=== PATIENT | female | born 1945 | race Caucasian/White ===

== ENCOUNTER 2018-07-26 10:55 | Observation (INO) | payer MEDICARE, OTHER ==
[~2018-07-26] VITALS: Ht 149.9 cm; Wt 68.2 kg
--- NOTE | ~2018-07-26 | MORECARE ---
CASE MANAGEMENT DISCHARGE SUMMARY PATIENT: SALIMA LAMBERT UNIT: [id number] ADM DATE: 07/26/18 AGE: 73 : 43 SEX: F ROOM/BED: D.9939 AUTHOR: GRANT PURI PHYSICIAN: REFERRING PHYSICIAN: PAKO KHAN MD DATE OF SERVICE: 07/28/18 Discharge Plan Patient Name: SALIMA LAMBERT Facility: [facility]:[place] : 1945 Planned Disposition: Home Anticipated Discharge Date: 07/27/18 Discharge Date: 07/27/2018 Expected LOS: 1 Initial Reviewer: [email or web address] Initial Review Date: 07/28/2018 Generated: 07/28/18 9:58 am Patient Name: SALIMA LAMBERT Page [id number] at 0858 All edits/amendments must be made on the electronic document DICTATION DATE: 07/28/18 0858 FRONT OFFICE MEDICAL ASSISTANT: JOYCE 07/28/18 0858 RPT#: [id number] DC DATE:07/27/18 STATUS: DIS IN [facility] [address] [place] [address] END OF REPORT
--- NOTE | ~2018-07-26 | HEMODYNAMI ---
PATIENT:SALIMA LAMBERT MEDICAL RECORD: [id number] : 41 [id number] ADMISSION DATE: 07/26/18 Generatedon:07/27/20187:48 Patient name: SALIMA LAMBERT Patient #: [id number] SSN: : 1945 Date of study: 07/27/2018 Page: Of Hemodynamic Procedure Report Patient Data Patient Demographics Procedure consent was obtained First Name: SALIMA Gender: Female Last Name: FAUSTO : 1945 Middle Initial: S Age: 73 year(s) Patient #: [id number] Race: Unknown Additional ID: [id number] Contact details [address]: [address] [place] [address] State: [place] City: [place] Zip code: [address] Past Medical History Allergies: No known allergies Admission Admission Data Admission Date: 07/26/2018 Admission Time: 13:25 Admit Source: Emergency department Room #: D.2119 Lab Results Lab Result Date: 07/27/2018 Lab Result Time: 0:00 Biochemistry Name Units Result Min Max BUN mg/dl 7 --(*---)-- 7 18 Creatinine mg/dl 0.8 --(-*--)-- 0.6 1.3 CBC Name Units Result Min Max Hemoglobin g/dl 10.4 *-(----)-- 13.5 17.5 Procedure Procedure Types Cath Procedure Diagnostic Procedure LHC LHC w/Coronaries Procedure Description Procedure Date Procedure Date: 07/27/2018 Procedure Start Time: 7:32 Procedure End Time: 7:45 Procedure Staff Name Function Galen Elizondo MD Performing Physician Adair Evans RT Scrub Kang Maravilla RT Monitor Maria Luz Maldonado RN Nurse Procedure Data Cath Procedure Fluoroscopy Diagnostic fluoroscopy Total fluoroscopy Time: 1.4 time: 1.4 min min Diagnostic fluoroscopy Total fluoroscopy dose: 372 dose: 372 mGy mGy Contrast Material Contrast Material Type Amount (ml) Isovue 300 68 Entry Location Entry Primary Successful Side Size Upsize Upsize Entry Closure Succes sful Closure Location (Fr) 1 (Fr) 2 (Fr) Remarks Device Remarks Femoral Right 5 Fr Exoseal artery Estimated blood loss: 10 ml Diagnostic catheters Device Type Used For End Catheter Placement MULTIPACK JL 4.0 5Fr Procedure catheter MULTIPACK 3DRC 5Fr Procedure catheter MULTIPACK Pigtail 5 Fr Procedure catheter Procedure Complications No complications Procedure Medications Medication Administration Route Dosage Oxygen etCO2 Nasal cannula 2 l/min Lidocaine 2% added to field 20 Heparin Flush Bag added to field 2 bags (1000units/500ml NS) 0.9% NaCl I.V. 100 ml/hr Versed I.V. 2 mg Fentanyl I.V. 50 mcg Versed I.V. 1 mg Hemodynamics Rest HGB: 10.4 (g/dl) Heart Rate: 71 (bpm) Pressure Samples Time Site Value (mmHg) Purpose Heart Use Rate(bpm) 7:35 AO 111/43(68) Snapshot 63 7:40 LV 134/0,13 Snapshot 53 7:40 AO 124/48(77) Pullback 65 7:40 LV 130/1,13 Pullback 65 Gradients Valve Time Site 1 Site 2 Mean SEP/DFP Peak To Heart Use (mmHg) (sec/min) Peak Rate (mmHg) (bpm) Aortic 7:40 LV AO 9 16 6 65 130/1,13 124/48(77) Calculations Valve P-P Mean Valve Index Valve Source Name Gradient Area Flow (cm2) Aortic 6 9 6 9 Snapshots Pre Cath Intra NCS Post Cath Vital Signs Time Heart Resp SPO2 etCO2 NIBP (mmHg) Rhythm Pain Sedation Rate (ipm) (%) (mmHg) Status Level (bpm) 7:22:59 82 18 97 27 184/94(139) NSR 0 (11) 10(A) , No pain 7:27:40 75 20 98 37.8 176/76(133) NSR 0 (11) 10(A) , No pain 7:32:00 65 16 97 37.1 131/66(112) NSR 0 (11) 10(A) , No pain 7:36:16 66 11 97 36.3 125/65(109) NSR 0 (11) 9(A) , No pain 7:40:34 64 13 98 38.5 126/63(102) NSR 0 (11) 9(A) , No pain 7:44:54 64 12 98 40.1 131/62(103) NSR 0 (11) 10(A) , No pain Medications Time Medication Route Dose Verified Delivered Reason Notes Effe ctiveness by by 7:21:03 Oxygen etCO2 2 Galen Maria Luz used for Nasal l/min Mikhail Maldonado procedure cannula RN 7:21:11 Lidocaine 2% added 20ml Galen Galen for local to vial Mikhail Elizondo MD anesthetic field 7:21:18 Heparin Flush added 2 Galen Galen used for Bag to bags Mikhail Elizondo MD procedure (1000units/500ml field NS) 7:21:26 0.9% NaCl I.V. 100 Galen Maria Luz Per ml/hr Mikhail Maldonado physician RN 7:29:13 Versed I.V. 2 mg Galen Maria Luz for Mikhail Maldonado sedation RN 7:29:21 Fentanyl I.V. 50 Galen Maria Luz for mcg Mikhail Maldonado sedation RN 7:34:53 Versed I.V. 1 mg Galen Maria Luz for Mikhail Maldonado sedation counter former Log Time Note 7:00:09 Maria Luz Maldonado RN sent for patient. Start room use. 7:07:06 Informed consent obtained and on chart 7:08:05 Admit Source: Emergency department 7:08:08 Diagnostic Cath status Elective 7:08:10 Time tracking: Regular hours (M-F 7:00 - 5:00) 7:08:14 Plan of Care:Hemodynamics will remain stable., Cardiac rhythm will remain stable., Comfort level will be maintained., Respiratory function will remain adequate., Patient/ family verbilizes understanding of procedure., Procedure tolerated without complication., Recovers from procedure without complications.. 7:13:37 Patient received from Med II to CCL 1 Alert and oriented. Tansferred to table in Supine position. 7:13:38 Warm blankets applied, and awilda hugger turned on for patient comfort. 7:13:38 Correct patient and procedure confirmed by team. 7:13:39 ECG and BP/O2 sat monitors applied to patient. 7:14:01 H&P Date Dictated: 07/26/2018 Within 30 days and on chart.. 7:14:07 Lab results completed and on chart. 7:14:11 Pre-procedure instructions explained to patient. 7:14:12 Pre-op teaching completed and patient verbalized understanding. 7:14:13 Family in patients room. 7:14:14 Patient NPO since Midnight. 7:14:23 Patient allergic to No known allergies 7:21:03 Oxygen 2 l/min etCO2 Nasal cannula was administered by Maria Luz Maldonado RN; used for procedure; 7:21:11 Lidocaine 2% 20ml vial added to field was administered by Galen Elizondo MD; for local anesthetic; 7:21:18 Heparin Flush Bag (1000units/500ml NS) 2 bags added to field was administered by Galen Elizondo MD; used for procedure; 7:21:26 0.9% NaCl 100 ml/hr I.V. was administered by Maria Luz Maldonado RN; Per physician; 7:21:36 Vital chart was started 7:27:22 Baseline sample Acquired. 7:27:26 Rhythm: sinus rhythm 7:27:28 Full Disclosure recording started 7:27:43 Is the patient allergic to Iodine/contrast media? No. 7:27:56 Is patient on blood thinner?No 7:27:59 Patient diabetic? Yes. 7:28:01 If diabetic: On Metformin? Unknown 7:28:04 Snore? Yes 7:28:06 Sleep apnea? No 7:28:07 Deviated septum? No 7:28:07 Opens mouth fully? Yes 7:28:08 Sticks out tongue? Yes 7:28:10 Airway obstruction? No ? 7:28:11 Dentures? No ? 7:28:14 Pre procedure: right dorsailis pedis pulse 1+ Palpable, but thready & weak; easily obliterated 7:28:17 Patient pain scale 0/10 ?. 7:28:27 IV patent on arrival in right wrist with 0.9% NaCl at [facility]. 7:28:42 Unable to go to right wrist due to IV. 7:28:46 Right groin area was prepped with chlora-prep and draped in sterile fashion 7:28:48 Alarms reviewed by R. N. 7:28:49 Sharps counted by scrub and verified by R.N. 7:28:50 --------ALL STOP TIME OUT------ 7:28:50 Final Timeout: patient, procedure, and site verified with staff and physician. All members of the team are in agreement. 7:28:52 Right groin site verified by team. 7:28:54 Physical assessment completed. ASA score P 2 - A patient with mild systemic disease as per Galen Elizondo MD. 7:28:58 Sedation plan: IV Moderate Sedation Medication:Versed, Fentanyl 7:29:13 Versed 2 mg I.V. was administered by Maria Luz Maldonado RN; for sedation; 7:29:21 Fentanyl 50 mcg I.V. was administered by Maria Luz Maldonado RN; for sedation; 7:32:18 Procedure started. 7:32:22 Local anesthetic to right femoral artery with Lidocaine 2% by Galen Elizondo MD.INITIAL ACCESS ONLY 7:32:34 Use device set Femoral Dx 7:32:36 Tegaderm 4 x 4 ([id number]) opened to sterile field. 7:32:37 ACIST Manifold (62207) opened to sterile field. 7:32:38 ACIST Hand Control (12782) opened to sterile field. 7:32:39 ACIST Syringe (35531) opened to sterile field. 7:32:39 Bag Decanter (2002S) opened to sterile field. 7:32:40 Medline Cath Pack ([id number]) opened to sterile field. 7:32:42 DIAGNOSTIC WIRE .035 260cm J wire (003334) opened to sterile field. 7:32:43 DIAGNOSTIC Multipack 5Fr catheter set ([id number]) opened to sterile field. 7:32:44 SHEATH Prelude 5Fr 0.035 (ITM-2Q-15-035) opened to sterile field. 7:34:11 Lab Result : Hemoglobin 10.4 g/dl 7:34:11 Lab Result : Creatinine 0.8 mg/dl 7:34:11 Lab Result : BUN 7 mg/dl 7:34:24 A 5 Fr sheath was inserted into the Right Femoral artery 7:34:53 Versed 1 mg I.V. was administered by Maria Luz Maldonado RN; for sedation; 7:35:05 A MULTIPACK JL 4.0 5Fr catheter was advanced over the wire and used for Procedure. 7:35:37 LCA angiography performed. 7:36:42 Catheter exchanged over wire. 7:37:28 A MULTIPACK 3DRC 5Fr catheter was advanced over the wire and used for Procedure. 7:37:55 RCA angiography performed. 7:39:01 Catheter exchanged over wire. 7:39:09 Zero performed for pressure channel P1 7:39:11 Zero performed for pressure channel P1 7:40:59 A MULTIPACK Pigtail 5 Fr catheter was advanced over the wire and used for Procedure. 7:41:05 LV angiography performed. 7:41:06 LV gram done using WERNER 7:41:18 EF : 55 % 7:41:20 LV hemodynamics recorded. 7:41:24 Injector settings: Ml/sec: 10, Volume: 20, 7:42:20 Catheter exchanged over wire. 7:42:29 EXOSEAL 5Fr (EX500) opened to sterile field. 7:42:41 Sheath removed intact; hemostasis achieved with Exoseal to the Right Femoral artery. 7:42:43 Procedure ended.(Physican Out) 7:42:57 Fluoroscopy time 01.40 minutes. 7:43:01 Fluoroscopy dose: 372 mGy 7:43:01 Flurop Dose total: 372 7:43:27 Contrast amount:Isovue 300 68ml. 7:43:30 Sharps counted by scrub and verified by R.N. 7:43:31 Insertion/operative site no bleeding no hematoma. 7:43:34 Post-op/insertion site Right Femoral artery dressed using a 4 x 4 and Tegaderm. 7:43:36 Post Procedure Pulses reassessed and unchanged 7:43:38 Post-procedure physical assessment completed. ASA score P 2 - A patient with mild systemic disease as per Galen Elizondo MD. 7:43:40 Post procedure rhythm: unchanged. 7:43:43 Estimated blood loss: 10 ml 7:43:45 Post procedure instruction explained to patient.Patient verbalizes understanding. 7:43:45 Patient needs reinforcement of post procedure teaching. 7:44:06 Procedure and supply charges have been captured, reviewed, submitted and are correct. 7:44:09 Procedure Complication : No complications 7:45:20 Vital chart was stopped 7:45:20 See physician's report for complete and final results. 7:45:23 Report given to PCU. 7:45:26 Patient transfered to PCU with Bed. 7:45:28 Procedure ended. 7:45:28 Full Disclosure recording stopped 7:46:56 End room use (Document Last) Device Usage Item Name Manufacture Quantity Catalog Number Hospital Part Current M inimal Lot# / Charge Number Stock Stock Serial# Code Tegaderm 4 x 4 3M 1 [id number] 230606 [id number] 219334 5 (1626W) ACIST Manifold Acist 1 82647 422986 338751 576147 5 (61159) [employer] ACIST Hand Acist 1 70861 985451 863371 794419 5 Control (19443) [employer] ACIST Syringe Acist 1 49878 753890 833627 010587 2 0 (01743) [employer] Bag Decanter Microtek 1 2002S 612696 78143 781267 5 (2001S) Medical Inc. Medline Cath Medline 1 [id number] 771378 20334 287056 5 Pack ([id number]) DIAGNOSTIC WIRE [place] 1 814131 830103 638209 681669 3 0 .035 260cm J wire (133288) DIAGNOSTIC Cardinal 1 OH6257 394415 99947 809723 3 0 Multipack 5Fr Health catheter set ([id number]) SHEATH Prelude Merit 1 QAO-2M-76-035 375881 432956 880353 5 5Fr 0.035 Medical ([id number]-9T-33-035) MULTIPACK JL Cardinal 1 888012 5 4.0 5Fr Health catheter MULTIPACK 3DRC Cardinal 1 201463 5 5Fr catheter Health MULTIPACK Cardinal 1 413228 5 Pigtail 5 Fr Health catheter EXOSEAL 5Fr Cardinal 1 EX500 161129 232179 598647 1 0 (EX500) Health Signature Audit [place] Stage Time Signature Unsigned Intra-Procedure 07/27/2018 Kang Maravilla 7:47:57 AM RT(R) Signatures Monitor : Kang Maravilla RT Signature : Date : Time : [address] [address]
[2018-07-26 11:52] LABS: BASOPHILS 0.3 % (0-2); HEMATOCRIT 34.2 % (36.0-48.0); HEMOGLOBIN 10.9 g/dL (12-16); IMMATURE GRANULOCYTES 0.3 % (0-5); LYMPHOCYTES 19.9 % (15-50); MCH 25.2 pg (26.0-34.0); MCHC 31.9 g/dL (31.0-37.0); MEAN PLATELET VOLUME 10.9 fL (7.4-10.4); MONOCYTES 8.4 % (2-11); NEUTROPHILS 70.1 % (40-80); PLATELET COUNT 139 10x3/uL (130-400); RBC 4.33 10x6/uL (4.00-5.40); RDW 15.9 % (11.5-14.5); WBC 6.1 10x3/uL (4.8-10.8)
[2018-07-26 11:57] LABS: ALBUMIN 3.7 g/dL (3.4-5.0); ALKALINE PHOSPHATASE 79 U/L (46-116); ALT (SGPT) 33 U/L (10-68); BILIRUBIN - TOTAL 0.39 mg/dL (0.2-1.3); CALC OSMOLALITY 276 mosm/kg (275-300); CALCIUM 9.3 mg/dL (8.5-10.1); CARBON DIOXIDE 28.1 mmol/L (21.0-32.0); CHLORIDE - SERUM 101 mmol/L (98-107); CREATININE - SERUM 0.8 mg/dL (0.6-1.3); GLUCOSE 196 mg/dL (74-106); POTASSIUM - SERUM 4.5 mmol/L (3.5-5.1); PROTEIN - SERUM 7.2 g/dL (6.4-8.2); SODIUM 137 mmol/L (136-145); UREA NITROGEN 8 mg/dL (7-18); eGFR NON AFRICAN AMERICAN 74 mL/min (90-120)
[2018-07-26 12:09] LABS: CKMB 0.8 U/L (0.0-3.6); CREATINE KINASE 52 UL (21-215); TROPONIN-I < 0.017 ng/mL (0.000-0.060)
[2018-07-26 13:18] VITALS: BP 155/106
[2018-07-26 13:55] LABS: CREATINE KINASE 45 UL (21-215); TROPONIN-I < 0.017 ng/mL (0.000-0.060)
[2018-07-26 19:43] LABS: CKMB 0.8 U/L (0.0-3.6); CREATINE KINASE 35 UL (21-215); TROPONIN-I < 0.017 ng/mL (0.000-0.060)
[2018-07-26 20:00] VITALS: BP 137/59
[2018-07-26 23:38] VITALS: Ht 149.9 cm; Wt 68.2 kg
[2018-07-27 02:27] LABS: BASOPHILS 0.6 % (0-2); EOSINOPHILS 1.5 % (0-7); HEMATOCRIT 33.1 % (36.0-48.0); HEMOGLOBIN 10.4 g/dL (12-16); IMMATURE GRANULOCYTES 0.4 % (0-5); LYMPHOCYTES 30.5 % (15-50); MCH 24.7 pg (26.0-34.0); MCHC 31.4 g/dL (31.0-37.0); MCV 78.6 fL (80.0-100.0); MEAN PLATELET VOLUME 10.7 fL (7.4-10.4); MONOCYTES 8.5 % (2-11); NEUTROPHILS 58.5 % (40-80); PLATELET COUNT 147 10x3/uL (130-400); RBC 4.21 10x6/uL (4.00-5.40); RDW 15.9 % (11.5-14.5); WBC 5.2 10x3/uL (4.8-10.8)
[2018-07-27 02:56] LABS: ALBUMIN 3.4 g/dL (3.4-5.0); ALKALINE PHOSPHATASE 74 U/L (46-116); ALT (SGPT) 30 U/L (10-68); BILIRUBIN - TOTAL 0.39 mg/dL (0.2-1.3); CALC OSMOLALITY 279 mosm/kg (275-300); CALCIUM 8.8 mg/dL (8.5-10.1); CARBON DIOXIDE 29.4 mmol/L (21.0-32.0); CHLORIDE - SERUM 103 mmol/L (98-107); CKMB 0.9 U/L (0.0-3.6); CREATINE KINASE 28 UL (21-215); CREATININE - SERUM 0.8 mg/dL (0.6-1.3); GLUCOSE 157 mg/dL (74-106); POTASSIUM - SERUM 3.9 mmol/L (3.5-5.1); PROTEIN - SERUM 6.7 g/dL (6.4-8.2); SODIUM 140 mmol/L (136-145); TROPONIN-I < 0.017 ng/mL (0.000-0.060); UREA NITROGEN 7 mg/dL (7-18); eGFR NON AFRICAN AMERICAN 74 mL/min (90-120)
[2018-07-27 04:00] VITALS: BP 146/70
[2018-07-27] MEDS ORDERED: ASPIRIN325 MG PO (10:45)
== END 2018-07-27 13:58 | disposition home or self-care (01) ==
LOC: D.ER 10:55 → OBSVTIME 13:25 → D.M2 13:25 → D.EDHOLD 13:25 → D.M2 16:45
PROVIDERS: Family Medicine
DX: I25.110 Atherosclerotic heart disease of native coronary artery with unstable angina pectoris (principal); Z95.5 Presence of coronary angioplasty implant and graft; I10 Essential (primary) hypertension; K21.9 Gastro-esophageal reflux disease without esophagitis; E11.65 Type 2 diabetes mellitus with hyperglycemia; Z86.73 Personal history of transient ischemic attack (TIA), and cerebral infarction without residual deficits; F32.9 Major depressive disorder, single episode, unspecified